=== PATIENT | female | born 2000 | race Two or more races ===

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

== ENCOUNTER 2019-02-21 08:11 | Emergency (ER) | payer MEDICAID ==
[~2019-02-21] VITALS: Ht 152.4 cm; Wt 74.8 kg
[2019-02-21 08:52] LABS: Basophils # (auto) 0 uL; Basophils % (auto) 0.4 % (0.0-2.0); Eosinophils # (auto) 0.1 uL; Eosinophils % (auto) 0.6 % (0.0-7.0); Hematocrit 42.3 % (36.0-46.0); Hemoglobin 14.2 g/dL (12.2-16.2); Lymphocytes # (auto) 2.8 uL; Lymphocytes % (auto) 22.1 % (10.0-50.0); Mean Corpuscular Hemoglobin 27.3 pg (28.0-32.0); Mean Corpuscular Hgb Conc. 33.5 g/dL (32.0-36.0); Mean Corpuscular Volume 81.5 fL (80.0-100.0); Monocytes # (auto) 0.7 uL; Monocytes % (auto) 5.6 % (0.0-12.0); Neutrophils # (auto) 9.1 uL; Neutrophils % (auto) 71.3 % (37.0-80.0); Platelet Count (auto) 233 10^3/uL (140-450); Red Blood Cells 5.18 10^6/uL (4.0-5.20); Red Cell Distribution Width 14.5 % (11.8-14.3); White Blood Cell 12.7 10^3/uL (4.4-10.8)
[2019-02-21 09:44] LABS: Urine Bacteria MANY /hpf (None Seen); Urine Blood TRACE /uL (Negative); Urine Mucus FEW (None Seen); Urine Specific Gravity 1.028 (1.001-1.035); Urine WBC 130 /hpf (0 - 5)
[2019-02-21 11:45] VITALS: BP 120/70
== END 2019-02-21 12:29 | disposition home or self-care (01) ==
LOC: ER 08:12
DX: O20.0 Threatened abortion (principal); O23.31 Infections of other parts of urinary tract in pregnancy, first trimester; O21.8 Other vomiting complicating pregnancy; Z3A.01 Less than 8 weeks gestation of pregnancy
CPT/HCPCS: 36415; 76801; 81001; 84702; 85025

== ENCOUNTER 2019-06-20 21:17 | Observation (INO) | payer MEDICAID | END 2019-06-20 22:05 | disposition home or self-care (01) | DRG 566 | LOC: LDRP 21:17 | PROVIDERS: ADMIT Obstetrics & Gynecology; ATTEND Obstetrics & Gynecology | DX: O26.892 Other specified pregnancy related conditions, second trimester (principal); Z3A.25 25 weeks gestation of pregnancy | CPT/HCPCS: 59025; 81002; G0378 ==

== ENCOUNTER → 2019-10-25 | Emergency (ER) | payer MEDICAID ==
[~2019-10-25] VITALS: Ht 152.4 cm; Wt 76.2 kg
[~2019-10-25] MED LIST: ALUM & MAG HYDROX-SIMETH LIQ(MAALOX) 30 ML PO ONE; DONNATAL 5ml ORAL Elix (BELLADONNA ALK-PHENOBARB) PO ONE; LIDOCAINE VISCOUS 2% 15ML UD PO ONE
[2019-10-25 06:05] VITALS: BP 127/91
[2019-10-25 06:29] LABS: Basophils # (auto) 0 10 ^3/uL (0-0.2); Eosinophils # (auto) 0.2 10 ^3/uL (0-0.8); Hemoglobin 14.2 g/dL (12.2-16.2); Lymphocytes # (auto) 3.5 10 ^3/uL (0.4-5.4); Monocytes # (auto) 0.6 10 ^3/uL (0-1.3)
[2019-10-25 06:30] LABS: Basophils % (auto) 0.2 % (0.0-2.0); Eosinophils % (auto) 1.4 % (0.0-7.0); Hematocrit 43.5 % (36.0-46.0); Lymphocytes % (auto) 30.5 % (10.0-50.0); Mean Corpuscular Hemoglobin 26.5 pg (28.0-32.0); Mean Corpuscular Hgb Conc. 32.6 g/dL (32.0-36.0); Mean Corpuscular Volume 81.4 fL (80.0-100.0); Monocytes % (auto) 5.6 % (0.0-12.0); Neutrophils # (auto) 7.1 10 ^3/uL (1.6-8.6); Neutrophils % (auto) 62.3 % (37.0-80.0); Nucleated Red Blood Cells % 0.1 %; Platelet Count (auto) 276 10^3/uL (140-450); Red Blood Cells 5.34 10^6/uL (4.0-5.20); Red Cell Distribution Width 14.6 % (11.8-14.3); White Blood Cell 11.4 10^3/uL (4.4-10.8)
[2019-10-25 06:46] LABS: Albumin 3.2 g/dL (3.4-5.0); Calcium 9.1 mg/dL (8.5-10.1); Potassium 3.6 mmol/L (3.5-5.1)
[2019-10-25 06:51] LABS: BUN/Creatinine Ratio 11.4; Bilirubin, Total 0.3 mg/dL (0.2-1.0)
[2019-10-25 06:56] LABS: Urine Bacteria NONE SEEN /hpf (None Seen); Urine Blood 2+ /uL (Negative); Urine Mucus FEW (None Seen); Urine WBC 215 /hpf (0 - 5)
== END | disposition home or self-care (01) ==
LOC: ER 05:32
DX: O90.89 Other complications of the puerperium, not elsewhere classified (principal); K29.70 Gastritis, unspecified, without bleeding; N39.0 Urinary tract infection, site not specified; E44.1 Mild protein-calorie malnutrition; R73.9 Hyperglycemia, unspecified; R11.2 Nausea with vomiting, unspecified; Z68.32 Body mass index [BMI] 32.0-32.9, adult
CPT/HCPCS: 36415; 80053; 81001; 83690; 84702; 85025